=== PATIENT | female | born 1970 | race Caucasian/White ===

== ENCOUNTER → 2017-09-14 | Outpatient (CLI) | payer OTHER ==
[~2017-09-14] MED LIST: LORTAB 5/500 501 TAB PO
== END ==
LOC: MC.RAD 09:00
DX: Z12.31 Encounter for screening mammogram for malignant neoplasm of breast (principal)

== ENCOUNTER → 2018-09-28 | Outpatient (CLI) | payer OTHER | LOC: MC.RAD 10:37 | DX: Z12.31 Encounter for screening mammogram for malignant neoplasm of breast (principal) ==

== ENCOUNTER → 2019-10-06 | Outpatient (CLI) | payer OTHER | LOC: MC.RAD 11:00 | DX: Z12.31 Encounter for screening mammogram for malignant neoplasm of breast (principal) ==

== ENCOUNTER → 2020-10-22 | Outpatient (CLI) | payer OTHER | LOC: MC.RAD 09:45 | DX: Z12.31 Encounter for screening mammogram for malignant neoplasm of breast (principal) ==

== ENCOUNTER → 2021-12-26 | Outpatient (CLI) | payer OTHER | LOC: MC.RAD 12-23 11:45 | DX: Z12.31 Encounter for screening mammogram for malignant neoplasm of breast (principal) ==

== ENCOUNTER 2022-01-07 10:33 | Day surgery (SDC) | payer OTHER ==
[~2022-01-07] VITALS: Ht 177.8 cm; Wt 90.2 kg
[2022-01-07 11:13] VITALS: BP 120/88; PULSE 62; TEMP 97.7
[2022-01-07 12:50] VITALS: BP 109/80; PULSE 55
[2022-01-07 13:05] VITALS: BP 130/79; PULSE 60
== END 2022-01-07 13:10 | disposition home or self-care (01) ==
LOC: SDCO 10:33
DX: Z12.11 Encounter for screening for malignant neoplasm of colon (principal); D12.3 Benign neoplasm of transverse colon
CPT/HCPCS: J2704; J3010; J7120

== ENCOUNTER → 2022-12-28 | Outpatient (CLI) | payer OTHER | LOC: MC.RAD 12-02 07:00 | DX: Z12.31 Encounter for screening mammogram for malignant neoplasm of breast (principal) ==